=== PATIENT | female | born 1965 | race Caucasian/White ===

== ENCOUNTER 2017-04-09 09:26 | Inpatient (IN) | payer OTHER ==
[~2017-04-09] VITALS: Ht 162.6 cm; Wt 82.2 kg
[~2017-04-09 09:26] MED LIST: AMARYL2 MG PO; APAP/HYDROCODON1 T13 PO; BG MC; CARAFATE1 GM PO; COL100 PO; METFORMIN HCL1000 MG PO; PRI20 PO; ZES10 PO; ZOC10 PO
[2017-04-09 11:17] LABS: UA SPECIFIC GRAVITY <=1.005 (1.005-1.035); microscopic required? YES; urine erythrocyte NEGATIVE (NEGATIVE)
[2017-04-09 11:32] LABS: CARBON DIOXIDE 29.3 mmol/L (21-32); CHLORIDE SERUM 99 mmol/L (98-107); CREATININE SERUM 0.7 mg/dL (0.6-1.0); GFR1 > 60 mL/min; GLUCOSE SERUM 432 mg/dL (74-106); SODIUM SERUM 135 mmol/L (136-145)
[2017-04-09 11:37] LABS: ALBUMIN 3.2 g/dL (3.4-5.0); ALKALINE PHOSPHATASE 161 U/L (46-116); ALT/SGPT 27 U/L (14-59); AMYLASE 96 U/L (25-115); AST/SGOT 13 U/L (15-37); BILIRUBIN TOTAL 0.3 mg/dL (0.20-1.00); CHOLESTEROL 206 mg/dL (<200); HDL CHOLESTEROL 61 mg/dL (40-60); LIPASE 184 IU/L (73-393); TOTAL PROTEIN, SERUM 7.4 g/dL (6.4-8.2)
[2017-04-09 11:44] LABS: BASOPHIL % 0.6 % (0-2); PLATELET COUNT 297 x10^3mcL (130-400); RED CELL DISTRIBUTION WIDTH 12.7 % (11.5-14.5)
[2017-04-09 14:53] VITALS: BP 107/60
[2017-04-09 14:58] VITALS: Ht 162.6 cm; Wt 82.2 kg
[2017-04-09 15:49] LABS: T3 TOTAL 1.17 ng/mL
[2017-04-09 15:50] LABS: PHOSPHOROUS 3.6 mg/dL (2.5-4.9)
[2017-04-09 16:15] LABS: FREE T4 1.05 ng/dL (0.76-1.46); FREE THYROXINE INDEX 2.8 ug/dL (1.4-4.5); T4(THYROXINE) 8.5 ug/dL (4.7-13.3)
[2017-04-09 17:52] LABS: AMPHETAMINE QUAL UR NONE DETECTED (NEG <=1000)
[2017-04-09 21:47] VITALS: BP 116/69
[2017-04-10 05:08] VITALS: BP 124/66
[2017-04-10 08:00] VITALS: BP 120/64
[2017-04-10 10:30] VITALS: BP 120/64
[2017-04-10 14:00] VITALS: BP 124/51
[2017-04-10 18:29] VITALS: BP 116/62
[2017-04-10 21:07] VITALS: BP 109/55
[2017-04-11 06:41] VITALS: BP 123/63
[2017-04-11 07:15] LABS: CALCIUM 8.4 mg/dL (8.5-10.1); CARBON DIOXIDE 28.1 mmol/L (21-32); CHLORIDE SERUM 112 mmol/L (98-107); CREATININE SERUM 0.6 mg/dL (0.6-1.0); GFR1 > 60 mL/min; GLUCOSE SERUM 133 mg/dL (74-106); POTASSIUM SERUM 4.6 mmol/L (3.5-5.1); SODIUM SERUM 144 mmol/L (136-145)
[2017-04-11 08:46] VITALS: BP 136/67
[2017-04-11] MEDS ORDERED: KEFLEX500 M1 PO (09:57)
[2017-04-11] MEDS ORDERED: LANTUS SOLOS100 U/M1 SQ (10:10)
[2017-04-11 10:16] VITALS: BP 136/67
== END 2017-04-11 13:01 | disposition home or self-care (01) | DRG 420 ==
LOC: ED 09:26 → DU 12:17 → MU 04-11 08:14
PROVIDERS: Emergency Medicine; ADMIT Family Medicine
DX: E11.00 Type 2 diabetes mellitus with hyperosmolarity without nonketotic hyperglycemic-hyperosmolar coma (NKHHC) (principal); E44.0 Moderate protein-calorie malnutrition; D68.69 Other thrombophilia; N39.0 Urinary tract infection, site not specified; E87.1 Hypo-osmolality and hyponatremia; I10 Essential (primary) hypertension; G89.29 Other chronic pain; M54.9 Dorsalgia, unspecified; E78.00 Pure hypercholesterolemia, unspecified; Z68.31 Body mass index [BMI] 31.0-31.9, adult; Z79.84 Long term (current) use of oral hypoglycemic drugs
CPT/HCPCS: 36600; 82962; 83880; 84439; J0696; J1100; J1815; J1885; J1956; J7030; Q0092

== ENCOUNTER 2017-10-15 17:12 | Emergency (ER) | payer OTHER ==
[~2017-10-15] VITALS: Ht 154.9 cm; Wt 79.8 kg
[~2017-10-15 17:12] MED LIST changes: +KEFLEX500 M1 PO; +LANTUS SOLOS100 U/M1 SQ; +LEVEMIR100 U/M1 SC
[2017-10-15 17:16] VITALS: Ht 154.9 cm; Wt 79.8 kg
[2017-10-15 20:12] LABS: BASOPHIL % 0.5 % (0-2); PLATELET COUNT 300 x10^3mcL (130-400); RED CELL DISTRIBUTION WIDTH 13.2 % (11.5-14.5)
[2017-10-15 20:13] LABS: CALCIUM 8.9 mg/dL (8.5-10.1); CARBON DIOXIDE 26.2 mmol/L (21-32); CHLORIDE SERUM 100 mmol/L (98-107); CREATININE SERUM 0.5 mg/dL (0.6-1.0); GFR1 > 60 mL/min; GLUCOSE SERUM 380 mg/dL (74-106); POTASSIUM SERUM 4.3 mmol/L (3.5-5.1); SODIUM SERUM 134 mmol/L (136-145)
[2017-10-15 20:15] LABS: ALBUMIN 3.4 g/dL (3.4-5.0); ALKALINE PHOSPHATASE 137 U/L (46-116); ALT/SGPT 27 U/L (14-59); AST/SGOT 16 U/L (15-37); BILIRUBIN TOTAL 0.29 mg/dL (0.20-1.00); TOTAL PROTEIN, SERUM 6.9 g/dL (6.4-8.2)
[2017-10-15 20:56] VITALS: BP 135/79
== END 2017-10-15 21:10 | disposition home or self-care (01) ==
LOC: ED 17:12
PROVIDERS: Emergency Medicine
DX: S46.002A Unspecified injury of muscle(s) and tendon(s) of the rotator cuff of left shoulder, initial encounter (principal); R07.89 Other chest pain; I10 Essential (primary) hypertension; E11.9 Type 2 diabetes mellitus without complications; W18.30XA Fall on same level, unspecified, initial encounter; Y93.89 Activity, other specified; Y92.89 Other specified places as the place of occurrence of the external cause; Y99.8 Other external cause status
CPT/HCPCS: 36415; Q0092